=== PATIENT | male | born 1955 | race Caucasian/White ===

== ENCOUNTER 2019-08-31 15:20 | Emergency (ER) | payer BC, SELFPAY ==
[2019-08-31] MEDS ORDERED: Piperacillin/Tazobactam 4.5 GM VIAL ONE (15:40)
[2019-08-31] MEDS ORDERED: Acetaminophen 650 MG Suppository ONE (15:40)
[2019-08-31] MEDS ORDERED: Sodium Chloride 0.9% 100 ML ONE (15:40)
--- NOTE | 2019-08-31 15:42 | RAD ---
Chest AP view INDICATION: Chest pain and vomiting blood COMPARISON: Prior examination dated July 18, 2009. FINDINGS: Lungs: There is increased interstitial and airspace opacity within the right upper lobe and right lo wer lobe suspicious for possible infiltrate such as pneumonia. Left lung is clear. Cardiac silhouette: The cardiomediastinal silhouette appears within normal limits. Pulmonary vasculature: Normal Pleural spaces: No pleural effusion or pneumothorax is demonstrated. Upper abdomen: No abnormality seen. Osseous structures: No acute osseous abnormality. Additional findings: None. IMPRESSION: Prominent airspace opacity within the right upper lobe and right lower lobe is suspicious for an infi ltrative process possibly related to pneumonia. Recommend correlation. Two-view chest radiograph may be helpful for improved characterization. Left lung is clear.
[2019-08-31 15:47] LABS: INR-International Normal Ratio 1.2; PTT 30.8 SEC (22.9-36.1); Prothrombin Time 15.4 SEC (12.0-14.7)
[2019-08-31 15:54] LABS: ALT (SGPT) 37 U/L (8-55); AST (SGOT) 30 U/L (5-34); Albumin 3.2 g/dL (3.4-4.8); Alkaline Phosphatase 100 U/L (40-110); Anion Gap 15 mmol/L (10-20); BUN (Urea Nitrogen) 26 mg/dL (8.4-25.7); Calc. Creatinine Clearance 0 mL/min (70-130); Calcium 9.2 mg/dL (7.8-10.44); Carbon Dioxide 22 mmol/L (23-31); Chloride 100 mmol/L (98-107); Estimated GFR-MDRD 72; Globulin 3.6 g/dL (2.4-3.5); Glucose 149 mg/dL (80-115); Potassium 4.2 mmol/L (3.5-5.1); Protein, Total 6.8 g/dL (5.8-8.1); Sodium 133 mmol/L (136-145)
[2019-08-31] MEDS ORDERED: Sodium Chloride 0.9% 1,000 ML ONE (15:54)
[2019-08-31 15:56] LABS: CKMB 0.9 ng/mL (0-6.6); Troponin I 0.095 ng/mL (< 0.028)
[2019-08-31 15:58] LABS: Band 9 % (5-11); Hemoglobin 13.7 g/dL (14.0-18.0); Lymphocytes 5 % (21-51); MDiff Complete? YES; Mean Corpuscular HGB CONC 32.3 g/dL (32.0-36.0); Mean Corpuscular Hemoglobin 29.4 pg (27.0-31.0); Mean Corpuscular Volume 91.1 fL (78.0-98.0); Mean Platelet Volume 8.6 fL (7.4-10.4); Monocytes 4 % (0-10); Neutrophil 82 % (42-75); Platelet Count 179 thou/uL (130-400); Platelet Morphology Comment Appears Adequate; RBC Distribution Width 11.6 % (11.5-14.5); Red Blood Cell (RBC) Count 4.65 mill/uL (4.70-6.10)
[2019-08-31] MEDS ORDERED: Fentanyl 100 MCG/2 ML VIAL ONE (15:59)
[2019-08-31 16:02] LABS: Acetaminophen Less than 6.0 mcg/mL (10.0-30.0); Alcohol Less than 10 mg/dL (Less than 10); Salicylate Less than 8.0 mg/dL (15.0-30.0)
[2019-08-31] MEDS ORDERED: Azithromycin 500 MG VIAL ONE (16:19)
== END 2019-08-31 16:19 | disposition short-term general hospital (02) ==
LOC: MADERS 15:20
DX: I21.3 ST elevation (STEMI) myocardial infarction of unspecified site (principal); J18.9 Pneumonia, unspecified organism; A41.9 Sepsis, unspecified organism; I10 Essential (primary) hypertension; F41.9 Anxiety disorder, unspecified; F17.210 Nicotine dependence, cigarettes, uncomplicated
CPT/HCPCS: 71045; 80053; 80307; 82271; 82274; 82553; 83605; 83690; 84484; 85025; 85610; 85730; 87040; 87077; 87149; 93005; 94760; 96365; 96375; J0456; J2543; J3010; J3490; J7050

== ENCOUNTER 2025-06-18 13:57 | Emergency (ER) | payer MEDICARE, SELFPAY ==
[2025-06-18 14:44] LABS: INR-International Normal Ratio 1.1; PTT 27.2 sec (22.9-36.1); Prothrombin Time 13.9 sec (12.0-14.7)
[2025-06-18 14:53] LABS: Hematocrit 46.9 % (42.0-52.0); Hemoglobin 14.8 g/dL (14.0-18.0); Mean Corpuscular Hemoglobin 29.3 pg (27.0-31.0); Mean Corpuscular Volume 92.6 fl (78.0-98.0); Platelet Count 196 10x3/uL (130-400); Red Blood Cell (RBC) Count 5.07 mill/uL (4.70-6.10); White Blood Cell (WBC) Count 7.9 10x3/uL (4.8-10.8)
[2025-06-18 14:56] LABS: ALT (SGPT) 80 U/L (Less than 45); AST (SGOT) 95 U/L (11-34); Albumin 3.8 g/dL (3.1-4.5); Alkaline Phosphatase 56 U/L (40-110); Anion Gap 17 mmol/L (10-20); BUN (Urea Nitrogen) 67 mg/dL (8.4-25.7); Bilirubin, Total 1.0 mg/dL (0.3-1.2); Calc. Creatinine Clearance 0 mL/min (70-130); Calcium 9.0 mg/dL (7.8-10.44); Carbon Dioxide 20 mmol/L (23-31); Chloride 107 mmol/L (98-107); Globulin 3.4 g/dL (2.4-3.5); Glucose 128 mg/dL (80-115); Potassium 4.1 mmol/L (3.5-5.1); Sodium 140 mmol/L (136-145); Troponin I 0.043 ng/mL (< 0.028)
[2025-06-18 14:58] LABS: Manual Diff?? YES
[2025-06-18] MEDS ORDERED: Tenecteplase 50 MG ONE (15:01)
[2025-06-18 15:02] LABS: MDiff Complete? YES
[2025-06-18 15:03] LABS: Platelet Adequacy Comment Appears Adequate
[2025-06-18] MEDS ORDERED: niCARdipine 25 MG/10 ML SDV ONE (15:16)
== END 2025-06-18 15:42 | disposition short-term general hospital (02) ==
LOC: MADERS 13:57
DX: R29.818 Other symptoms and signs involving the nervous system (principal); I13.0 Hypertensive heart and chronic kidney disease with heart failure and stage 1 through stage 4 chronic kidney disease, or unspecified chronic kidney disease; N18.9 Chronic kidney disease, unspecified; I50.9 Heart failure, unspecified; N17.9 Acute kidney failure, unspecified; R79.89 Other specified abnormal findings of blood chemistry; R74.01 Elevation of levels of liver transaminase levels; I25.10 Atherosclerotic heart disease of native coronary artery without angina pectoris; F17.210 Nicotine dependence, cigarettes, uncomplicated; Z79.82 Long term (current) use of aspirin; Z79.899 Other long term (current) drug therapy
CPT/HCPCS: 36415; 36416; 37195; 70450; 70496; 70498; 71045; 80053; 84484; 85025; 85610; 85730; 93005; 94760; 96365; J3101